=== PATIENT | female | born 1990 | race Caucasian/White ===

== ENCOUNTER 2017-01-22 14:22 | Emergency (ER) | payer BC ==
[~2017-01-22] VITALS: Ht 162.6 cm; Wt 66.0 kg
[2017-01-22 14:34] VITALS: BP 119/72
[2017-01-22] MEDS ORDERED: HYDROCODONE/ACETAMINOPHEN 5/325MG TABLET PO ONE (15:45)
== END 2017-01-22 18:30 | disposition home or self-care (01) ==
LOC: ER 15:34
DX: S16.1XXA Strain of muscle, fascia and tendon at neck level, initial encounter (principal); S39.012A Strain of muscle, fascia and tendon of lower back, initial encounter; V43.52XA Car driver injured in collision with other type car in traffic accident, initial encounter; Y93.89 Activity, other specified; Y99.8 Other external cause status; Y92.89 Other specified places as the place of occurrence of the external cause
CPT/HCPCS: 72100; 72125; 81025; 99284